=== PATIENT | female | born 1955 | race Caucasian/White ===

== ENCOUNTER → 2016-09-11 | Outpatient (CLI) | payer BC ==
[2010-09-23 23:34] VITALS: BP 131/88
[2016-09-11 17:39] LABS: HEMOGLOBIN A1C 6.81 % (4.2-6.0); MEAN BLOOD GLUCOSE (CALC) 140.773 mg/dL
== END ==
LOC: MOB LAB 16:06
PROVIDERS: ATTEND Family Medicine
DX: E11.9 Type 2 diabetes mellitus without complications (principal); E03.4 Atrophy of thyroid (acquired); I10 Essential (primary) hypertension
CPT/HCPCS: 36415; 83036; 84443

== ENCOUNTER → 2016-11-27 | Outpatient (CLI) | payer BC ==
[2010-09-23 23:34] VITALS: BP 131/88
[2016-11-27 11:11] LABS: BLOOD UREA NITROGEN 17 mg/dL (7-22); BUN/CREATININE RATIO 28.33 (6-20); CALCIUM 10.5 mg/dL (8.7-10.7); EST GLOMERULAR FILTRATION > 60 (>60 ml/min/1.73m(2))
[2016-11-27 11:12] LABS: CHOL/HDL RATIO 3.37 RATIO (0-4.0); HEMOGLOBIN A1C 6.94 % (4.2-6.0); LDL CHOLESTEROL,CALCULATED 73.6 mg/dL
== END ==
LOC: MOB LAB 08:47
PROVIDERS: ATTEND Family Medicine
DX: I10 Essential (primary) hypertension (principal); E11.9 Type 2 diabetes mellitus without complications; E78.5 Hyperlipidemia, unspecified; E03.4 Atrophy of thyroid (acquired)
CPT/HCPCS: 36415; 80048; 80061; 83036; 84443

== ENCOUNTER → 2017-03-07 | Outpatient (CLI) | payer BC ==
[2010-09-23 23:34] VITALS: BP 131/88
[2017-03-07 17:32] LABS: HEMATOCRIT 44.9 % (37.0-47.0); HEMOGLOBIN 15.6 g/dL (12.0-16.0); MEAN CORPUSCULAR HEMOGLOBIN 30.3 PG (27-31); MEAN CORPUSCULAR HGB CONC 34.7 g/dL (33-37); MEAN CORPUSCULAR VOLUME 87.2 FL (81-99); MEAN PLATELET VOLUME 9.8 FL (7.4-12.2); RED BLOOD COUNT 5.15 10^6/uL (4.20-5.40)
[2017-03-07 17:40] LABS: BLOOD UREA NITROGEN 22 mg/dL (7-22); BUN/CREATININE RATIO 31.42 (6-20); CALCIUM 10.4 mg/dL (8.7-10.7); CHOL/HDL RATIO 3.39 RATIO (0-4.0); EST GLOMERULAR FILTRATION > 60 (>60 ml/min/1.73m(2)); HDL CHOLESTEROL 41 mg/dL (40-150); HEMOGLOBIN A1C 6.61 % (4.2-6.0); SERUM ALBUMIN 4.5 g/dL (3.5-4.8); SERUM CHOLESTEROL 139 mg/dL (120-200)
== END ==
LOC: MOB LAB 16:42
PROVIDERS: ATTEND Family Medicine
DX: E03.9 Hypothyroidism, unspecified (principal); E11.9 Type 2 diabetes mellitus without complications; E78.5 Hyperlipidemia, unspecified; I10 Essential (primary) hypertension; R60.0 Localized edema
CPT/HCPCS: 36415; 80053; 80061; 83036; 83880; 84443; 85027

== ENCOUNTER 2017-03-31 12:00 | Emergency (ER) | payer OTHER, BC ==
[2017-03-31 12:46] VITALS: RESP 17; TEMP 97.4
--- NOTE | 2017-03-31 13:03 | PDOC ---
Shoulder Injury/Pain HPI - General Chief Complaint: Upper Extremity Problem/Injury Stated Complaint: SLIPPED ON WET FLOOR, RIGHT HAND/SHOULDER PAIN Date Seen by Provider: 03/31/17 Time Seen by Provider: 12:10 Source: POSITIVE: Patient Exam Limitations: POSITIVE: No limitations Nurse's Notes Reviewed & Considered: Yes - History of Present Illness Initial Comments: The patient is a 61-year-old female. Her chief complaint is pain to the right shoulder. Patient states that she was mopping a floor at her place of business and she slipped on some wet floor and fell, landing on her outstretched right palm. Patient states that "I bo my right shoulder". Patient complains of pain over the anterior and anterolateral aspect of her right shoulder. She states she has a 3 or 4 year history of chronic right shoulder pain and has been evaluated for this by her orthopedist, who has injected her right shoulder with steroid; she states this has not been helpful. She is also been seeing a massage therapist and she thinks that this may be helpful. Patient denies any wrist or elbow pain. History of type II diabetes mellitus, hypertension, hypercholesterolemia and hypothyroidism. Have you received a tetanus shot in the past 10 years?: Unknown Location: Right Shoulder Timing: REPORTS: Abrupt Duration: 1 hour Severity: Moderate Quality: REPORTS: "Pain" Location at Time of Onset: REPORTS: Work Context: REPORTS: Fall, Direct Blow Associated Symptoms: REPORTS: Other (Range of motion limited in abduction and extension by pain). DENIES: Weakness, Bruising, Unable to Move Shoulder, Not Using Arm, Tingling, Numbness Any Prior Injuries Related to Current Complaint?: No - Patient Home Medications Home Medications: Home Medications Vitamin E 2 cap PO DAILY 04/09/11 [place]-3 Fatty Acids [Fish Oil] 1 tab PO QD cap 09/10/14 Simvastatin 1 tab ORAL QHS #90 tab 03/06/17 Levothyroxine Sodium [Synthroid] 1 tab ORAL QD #90 tab 03/07/17 Lisinopril/Hydrochlorothiazide [Lisinopril-Hctz 20-12.5 Mg Tab] 1 tab PO BID # 120 tab 03/07/17 Metformin HCl 1 tab PO BID #180 tab 03/07/17 Metoprolol Succinate [Toprol Xl] 1 tab ORAL QHS #90 tab 03/07/17 Montelukast Sodium [Singulair] 1 tab PO QHS #30 tab 03/07/17 Potassium Gluconate [Potassium] 99 mg PO QD #90 unit 03/07/17 Cetirizine HCl [Zyrtec] 1 tab PO QD #30 cap 03/14/17 - Patient Allergies Allergies/Adverse Reactions: Allergies Allergy/AdvReac Type Severity Reaction Status Date / Time No Known Drug Allergies Allergy NOT Verified 03/31/17 12:15 APPLICABLE Past Medical History - heen HEENT History: Other (please comment) Additional HEENT History: WEARS GLASSES Cardiovascular History: Hypertension, Hyperlipidemia Respiratory History: Other (please comment) Additional Respiratory History: SEASONAL ALLERGIES Gastrointestinal History: Denies History Genitourinary History: Denies History Endocrine History: Type 2 Diabetes (oral), Hypothyroidism Musculoskeletal History: Other (please comment) Prosthesis or Implant: No Additional Musculoskeletal History: TENDON INJURY RIGHT SHOULDER Neurological History: Denies History Blood Disorders: Denies History Psychiatric History: Denies History History of Sexually Transmitted Diseases: No Female Reproductive History: Other (please comment) Additional Female Reproductive History: TUBAL LIGATION Obstetrical History: Delivery Additional Obstetrical History: x1 Cancer History: Skin Cancer Treatment / Date(s) of Treatment: EXCISION In Past Year Been Physically Harmed or Verbally Threatened: No (PER PATIENT) History of MDRO: No History of Other Communicable Diseases: No Tobacco Use: Never Smoker Alcohol Use: None Substance Use Type: None Previous Surgical History: Yes Type / Date of Surgery: x1, TUBAL LIGATION, D & C x2, TENDON REPAIR LEFT THUMB, PARTIAL THYROIDECTOMY, PARATHYROID TUMOR REMOVAL, CHOLECYSTECTOMY, BLADDER SLING Anesthesia Reactions: No Malignant Hyperthermia: No Family History of Malignant Hyperthermia: No Significant Family History: No pertinent family hx Past Medical History Reviewed: Reviewed - No Changes ROS - Limitations ROS Limitations: No Limitations Constitution: REPORTS: Denies Symptoms Cardiovascular: REPORTS: Denies Cardiac Symptoms Respiratory: REPORTS: Denies Resp Symptoms Neurological: REPORTS: Denies Neuro Symptoms Gastrointestinal: REPORTS: Denies GI Symptoms Endocrine: REPORTS: Denies Symptoms Musculoskeletal: REPORTS: Joint Pain (Right shoulder as above), Recent Injury ( Right shoulder as above) Genitourinary: REPORTS: Denies Symptoms Eyes: REPORTS: Denies Symptoms ENT: REPORTS: Denies Symptoms Skin: REPORTS: Denies Skin Symptoms Lympathic: REPORTS: Denies Lympathic Symptoms Immunologic: POSITIVE: Denies Symptoms Psychiatric: POSITIVE: Denies Psych Symptoms Shoulder Injury/Pain Exam - General Appearance General Appearance: POSITIVE: Alert, Cooperative, No Acute Distress - Upper Extremity Shoulder: POSITIVE: No Dislocation, Soft-Tissue Tenderness, Bony Tenderness, Limited ROM, Held in Adduction, See Diagram. NEGATIVE: Full ROM (Range of motion limited in all dimensions, especially abduction and extension, by pain.) , Swelling, Ecchymosis, Clavicular Deformity, AC Drop-Off, Anterior Fullness Upper Extremity: POSITIVE: Uninjured Below Shoulder Neuro/Vascular: POSITIVE: Sensation Normal, Motor Normal, No Vascular Compromise Skin: POSITIVE: Warm, Dry - Neck / Back Neck/Back: POSITIVE: Normal Inspection, Non-Tender, Painless ROM - Respiratory / CVS Respiratory / CVS: POSITIVE: Chest Non Tender, No Ecchymosis, Breath Sounds Normal, No Respiratory Distress, Heart Sounds Normal, Regular Rate/Rhythm Peripheral Pulses: Radial (R): 2+, Radial (L): 2+ Procedure - Splinting Time Splint Applied: 12:50 Location: shoulder immobilizer, right Pre-Proc Neuro Vasc Exam: Normal Splint Type: Shoulder Immobilizer Applied By:: Nurse Images - Upper Extremities Upper Extremities: 1 - Area of most prominent pain Shoulder Pain/Injury Progress - Results Reviewed by me Xrays/CTs/US Reviewed by me: Yes Discussed with Radiologist: No Radiology Findings: No fractures or dislocations seen by me; radiologist interpretation pending - Patient's Progress Pain Medication Addressed: POSITIVE: Yes (Recommended Advil or Tylenol) School/Work Release Addressed: POSITIVE: Yes Re-Examine Time:: 13:00 Status: POSITIVE: Unchanged - Consult Counseled: POSITIVE: Patient, RE: Radiology Results, RE: DX, RE: Need for F/U Patient Care Time - Estimated PCT Patient Care Time (In Minutes): 35 Vital Signs - Recent Vital Signs Vital Signs: Vital Signs (Last 8 hours) Temp Pulse Resp BP Pulse Ox 03/31/17 12:00 97.4 F 64 17 128/81 91 - VS Reviewed Vital Signs Reviewed: Yes Discharge Clinical Impression: Sprain of shoulder and upper arm Discharge Disposition: Discharged to Home Condition: Stable Patient Instructions Given at Discharge: Shoulder Sprain (ED) Additional Instructions: Wear shoulder immobilizer for 4-5 days, and then begin range of motion exercises , as demonstrated. Cool compresses to shoulder. Advil or Tylenol as necessary for pain. Follow-up with your orthopedist if not improving well in 7-10 days. Return here anytime if condition worsens in any way whatsoever. Follow Up With: MIGUEL SHETH [Primary Care Provider] - (Instructions as above. Follow-up with your orthopedist in 10-12 days if not improving well. Return here anytime if condition worsens in any way.)
--- NOTE | 2017-04-01 08:50 | DI ---
RIGHT SHOULDER, 03/31/2017 12:29 PM: Clinical History: Injury. The patient fell. Previous Exam: None at this facility. 3 views are submitted. There is no acute soft tissue, osseous, or joint abnormality. On the axillary view, calcifications are present in the region of the supraspinatus tendon consistent with calcific t endinitis. Multiple surgical clips are present in the right neck region. The visualized portions of t he right lung including the apex and the upper ribs are normal. Readin. There is no acute fracture or dislocation. 2. Calcific tendinitis, probably in the supraspinatus tendon.
== END 2017-03-31 13:04 | disposition home or self-care (01) ==
LOC: ER 12:00
DX: S43.401A Unspecified sprain of right shoulder joint, initial encounter (principal); E11.9 Type 2 diabetes mellitus without complications; I10 Essential (primary) hypertension; E78.00 Pure hypercholesterolemia, unspecified; E03.9 Hypothyroidism, unspecified; W01.0XXA Fall on same level from slipping, tripping and stumbling without subsequent striking against object, initial encounter; Y99.0 Civilian activity done for income or pay
CPT/HCPCS: 73030; 99283